=== PATIENT | female | born 1940 | race Caucasian/White ===

== ENCOUNTER 2017-01-16 08:37 | Outpatient (CLI) | payer MEDICARE, BC ==
--- NOTE | 2017-01-16 14:05 | PET ---
PET CT FROM SKULL BASE TO MID THIGH: Date: 01/16/17 INDICATION: Restaging evaluation for lymphoma. COMPARISON: Recent examination dated 11/07/16. TECHNIQUE: Multiple PET CT images were obtained from the skull base to the mid thigh following the introduction of 12.3 mCi of F18-FDG IV. CT images were obtained for attenuation correction purposes only. FINDINGS: Biodistribution: The biodistribution for this examination appears acceptable. HEAD/NECK: No hypermetabolic lymphadenopathy or soft tissue mass is identified. CHEST: The previously seen hypermetabolic right axillary lymph node is no longer demonstrating hypermetabol ic FDG uptake. Area of linear FDG activity involving the anterior aspect of the right upper extremit y seen on the prior PET was likely related to FDG activity within the right cephalic vein related to injection. This is no longer identified on the current exam. No hypermetabolic pulmonary nodule or pleural effusion is demonstrated. There are calcified lymph nodes within the right hilar region. ABDOMEN/PELVIS: No hypermetabolic lymphadenopathy or free fluid is identified. Mild background activity is seen with in the liver and bowel. Excretory activity is seen within the kidneys and bladder. SKIN/OSSEOUS STRUCTURES: There are some mild areas of increased FDG uptake involving the medullary cavity of the axial and ap pendicular skeleton which is likely related to underlying marrow reconversion. No suspicious hyperme tabolic skin or osseous lesion is evident. IMPRESSION: 1. Resolution of the hypermetabolic activity seen involving a lymph node within the right axillary region. 2. The reported area of FDG avidity within the right upper extremity is likely related to residual radiotracer within the right cephalic vein on the prior PET/CT. 3. Mild FDG uptake seen within the axial and appendicular skeleton, likely related to marrow reconv ersion. POS: KAROLINE
== END 2017-01-16 08:38 | disposition home or self-care (01) ==
LOC: PET 08:37
PROVIDERS: ATTEND Internal Medicine Hematology & Oncology
DX: C83.89 Other non-follicular lymphoma, extranodal and solid organ sites (principal)
CPT/HCPCS: 78815; A9552

== ENCOUNTER 2017-05-23 11:45 | Outpatient (CLI) | payer MEDICARE, BC | END 2017-05-23 11:46 | disposition home or self-care (01) | LOC: BICMAMMO 11:45 | PROVIDERS: ATTEND Family Medicine | DX: Z12.31 Encounter for screening mammogram for malignant neoplasm of breast (principal) | CPT/HCPCS: 77063; 77067 ==

== ENCOUNTER 2018-05-28 11:16 | Outpatient (CLI) | payer MEDICARE, BC ==
--- NOTE | 2018-05-28 14:58 | MMO ---
FILMS COMPARED: The present examination has been compared to prior imaging studies performed at [facility] on 05/23/2017, and at [facility] on 05/27/2012, 11/25/2013, 11/26/2013, 02/01/2015 and 05/09/2016. MAMMOGRAM FINDINGS: There are scattered fibroglandular densities. There are vascular calcifications seen in both breasts. There are no suspicious masses, calcifications or areas of architectural distortion. IMPRESSION: CALCIFICATIONS IN BOTH BREASTS ARE BENIGN. A ROUTINE FOLLOW-UP MAMMOGRAM IN 1 YEAR IS RECOMMENDED. ACR BI-RADS Category 2 - Benign finding
== END 2018-05-28 11:17 | disposition home or self-care (01) ==
LOC: BICMAMMO 11:16
PROVIDERS: ATTEND Family Medicine
DX: Z12.31 Encounter for screening mammogram for malignant neoplasm of breast (principal); R92.1 Mammographic calcification found on diagnostic imaging of breast
CPT/HCPCS: 77063; 77067

== ENCOUNTER 2019-06-02 14:46 | Outpatient (CLI) | payer MEDICARE, BC ==
--- NOTE | 2019-06-02 15:34 | MMO ---
Bilateral MAMMO Bilat Screen [facility]. CLINICAL HISTORY: Patient is 79 years old and is seen for screening. The patient has the following family history of breast cancer: cousin gender unknown and niece. The patient has a history of lymphoma in 2017. VIEWS: The views performed were: bilateral craniocaudal with tomosynthesis and bilateral mediolateral oblique with tomosynthesis. FILMS COMPARED: The present examination has been compared to prior imaging studies performed at [facility] on 05/23/2017 and 05/28/2018, and at [facility] on 05/09/2016. This study has been interpreted with the assistance of computer-aided detection. MAMMOGRAM FINDINGS: There are scattered fibroglandular densities. There are stable benign appearing calcifications seen in both breasts. There are no suspicious masses, suspicious calcifications, or new areas of architectural distortion. IMPRESSION: THERE IS NO MAMMOGRAPHIC EVIDENCE OF MALIGNANCY. A ROUTINE FOLLOW-UP MAMMOGRAM IN 1 YEAR IS RECOMMENDED. THE RESULTS OF THIS EXAM WERE SENT TO THE PATIENT. ACR BI-RADS Category 2 - Benign finding MAMMOGRAPHY NOTE: 1. A negative mammogram report should not delay a biopsy if a dominant of clinically suspicious mass is present. 2. Approximately 10% to 15% of breast cancers are not detected by mammography. 3. Adenosis and dense breasts may obscure an underlying neoplasm. Reported by: ARI ARANDA MD Electonically Signed: [id number]
== END 2019-06-02 14:47 | disposition home or self-care (01) ==
LOC: BICMAMMO 14:46
PROVIDERS: ATTEND Family Medicine
DX: Z12.31 Encounter for screening mammogram for malignant neoplasm of breast (principal); Z80.3 Family history of malignant neoplasm of breast; Z85.72 Personal history of non-Hodgkin lymphomas
CPT/HCPCS: 77063; 77067

== ENCOUNTER 2020-06-08 11:46 | Outpatient (CLI) | payer MEDICARE, BC | END 2020-06-08 11:47 | disposition home or self-care (01) | LOC: BICMAMMO 11:46 | PROVIDERS: ATTEND Family Medicine | DX: Z12.31 Encounter for screening mammogram for malignant neoplasm of breast (principal); Z85.72 Personal history of non-Hodgkin lymphomas; Z80.3 Family history of malignant neoplasm of breast | CPT/HCPCS: 77063; 77067 ==

== ENCOUNTER 2021-06-10 10:57 | Outpatient (CLI) | payer MEDICARE, BC | END 2021-06-10 10:58 | disposition home or self-care (01) | LOC: BICMAMMO 10:57 | PROVIDERS: ATTEND Family Medicine | DX: Z12.31 Encounter for screening mammogram for malignant neoplasm of breast (principal); Z80.3 Family history of malignant neoplasm of breast; Z85.72 Personal history of non-Hodgkin lymphomas | CPT/HCPCS: 77063; 77067 ==

== ENCOUNTER 2022-02-07 10:42 | Outpatient (CLI) | payer MEDICARE, BC | END 2022-02-07 10:43 | disposition home or self-care (01) | LOC: BICMAMMO 10:42 | PROVIDERS: ATTEND Family Medicine | DX: Z13.820 Encounter for screening for osteoporosis (principal); N95.9 Unspecified menopausal and perimenopausal disorder | CPT/HCPCS: 77080 ==

== ENCOUNTER 2022-08-02 11:56 | Outpatient (CLI) | payer MEDICARE, BC | END 2022-08-02 11:57 | disposition home or self-care (01) | LOC: BICMAMMO 11:56 | PROVIDERS: ATTEND Family Medicine | DX: Z12.31 Encounter for screening mammogram for malignant neoplasm of breast (principal); Z80.3 Family history of malignant neoplasm of breast; Z85.72 Personal history of non-Hodgkin lymphomas | CPT/HCPCS: 77063; 77067 ==

== ENCOUNTER 2023-09-03 13:35 | Outpatient (CLI) | payer MEDICARE, BC | END 2023-09-03 13:36 | disposition home or self-care (01) | LOC: BICMAMMO 13:35 | PROVIDERS: ATTEND Family Medicine | DX: Z12.31 Encounter for screening mammogram for malignant neoplasm of breast (principal); Z80.3 Family history of malignant neoplasm of breast; Z85.72 Personal history of non-Hodgkin lymphomas | CPT/HCPCS: 77063; 77067 ==

== ENCOUNTER 2024-05-07 12:07 | Outpatient (CLI) | payer MEDICARE, BC | END 2024-05-07 12:08 | disposition home or self-care (01) | LOC: BICMAMMO 12:07 | PROVIDERS: ATTEND Family Medicine | DX: Z78.0 Asymptomatic menopausal state (principal); M85.88 Other specified disorders of bone density and structure, other site | CPT/HCPCS: 77080 ==